=== PATIENT | female | born 1945 | race Caucasian/White ===

== ENCOUNTER 2024-01-01 14:33 | Emergency (ER) | payer MEDICARE, BC ==
[~2024-01-01] VITALS: Ht 170.2 cm; Wt 74.1 kg
[2024-01-01 15:12] VITALS: BP 102/53; PULSE 88; RESP 17; TEMP 98.1; O2SAT 97
[2024-01-01] MEDS ORDERED: NEOM10SO7 RIGHT EAR (16:50)
== END 2024-01-01 17:13 | disposition home or self-care (01) ==
LOC: ER 14:34
DX: H60.90 Unspecified otitis externa, unspecified ear (principal)
CPT/HCPCS: 99282